=== PATIENT | female | born 1975 | race Hispanic/Latino ===

== ENCOUNTER 2018-11-14 17:14 | Inpatient (IN) | payer SELFPAY ==
[2018-11-14] MEDS ORDERED: NA CHLORIDE 0.9% 1,000 ML ONE ×2 (18:33→20:19)
[2018-11-14] MEDS ORDERED: ONDANSETRON 4 MG/2 ML VIAL ONE (18:33)
[2018-11-14] MEDS ORDERED: KETOROLAC 30 MG/ML INJ ONE (18:33)
[2018-11-14 18:47] LABS: Potassium 3.7 mmol/L (3.5-5.1)
[2018-11-14 18:55] LABS: Urine Blood TRACE (NEG); Urine Glucose NEGATIVE (NEG); Urine Protein NEGATIVE (NEG)
--- NOTE | 2018-11-14 19:30 | RAD REPORT ---
EXAM DESCRIPTION: CT - Stone Protocol - 11/14/2018 6:58 pm CLINICAL HISTORY: Abdominal pain. Left lower quadrant pain and nausea COMPARISON: None. TECHNIQUE: Computed axial tomography of the abdomen pelvis was obtained without oral or IV contrast. Lack of IV and oral contrast limits evaluation of solid organs, bowel, and vessels. Coronal reformat lb images were obtained and reviewed. All CT scans are performed using dose optimization technique as appropriate and may include automated exposure control or mA/KV adjustment according to patient size. FINDINGS: A 5 millimeter right renal calculus is present. Hydronephrosis is not noted. An ureteral c alculus is not noted. A bladder calculus is not present. The liver, spleen, pancreas and adrenals appear grossly normal The appendix appears normal Small umbilical hernia Diverticula stem from the colon. Mild to moderate stranding is present within the fat adjacent to pro ximal sigmoid colon. Small amount of ascites IMPRESSION: Mild to moderate sigmoid diverticulitis Nonobstructing right renal calculus
[2018-11-14] MEDS ORDERED: METRONIDAZOLE 500mg IVPB 500 MG/100 ML BAG IV ONE (20:19)
[2018-11-14] MEDS ORDERED: CIPROFLOXACIN 400mg IV 400 MG/200 ML BAG IV ONE (20:19)
--- NOTE | 2018-11-14 20:47 | EDPHYS ---
Physician Documentation [facility] Name: Tona Stafford Age: 43 yrs Sex: Female : 1975 Arrival Date: 11/14/2018 Time: 17:18 Bed 28 Private MD: ED Physician Peter Williamson HPI: 11/14 21:01 This 43 yrs old Female presents to ER via Ambulatory with complaints of Flank kb Pain. 21:01 The patient presents with abdominal pain in the left lower quadrant. Onset: The kb symptoms/episode began/occurred 3 day(s) ago. The symptoms do not radiate. Associated signs and symptoms: Pertinent positives: nausea and vomiting, constipation. The symptoms are described as constant. Modifying factors: The symptoms are alleviated by nothing, the symptoms are aggravated by nothing. Severity of pain: At its worst the pain was moderate in the emergency department the pain is unchanged. The patient has not experienced similar symptoms in the past. The patient has not recently seen a physician. 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 - Social history:: Smoking status: Patient uses tobacco products, smokes one pack cigarettes per day. - Ebola Screening: : No symptoms or risks identified at this time. ROS: 21:00 Constitutional: Negative for fever, chills, and weight loss, Cardiovascular: Negative kb for chest pain, palpitations, and edema, Respiratory: Negative for shortness of breath, cough, wheezing, and pleuritic chest pain, Back: Negative for injury and pain, : Negative for injury, bleeding, discharge, and swelling, MS/Extremity: Negative for injury and deformity, Skin: Negative for injury, rash, and discoloration, Neuro: Negative for headache, weakness, numbness, tingling, and seizure. 21:00 Abdomen/GI: Positive for abdominal pain, nausea and vomiting, constipation, Negative for diarrhea. Exam: 21:01 Constitutional: This is a well developed, well nourished patient who is awake, alert, kb and in no acute distress. Head/Face: Normocephalic, atraumatic. ENT: Nares patent. No nasal discharge, no septal abnormalities noted. Tympanic membranes are normal and external auditory canals are clear. Oropharynx with no redness, swelling, or masses, exudates, or evidence of obstruction, uvula midline. Mucous membranes moist. Neck: Trachea midline, no thyromegaly or masses palpated, and no cervical lymphadenopathy. Supple, full range of motion without nuchal rigidity, or vertebral point tenderness. No Meningismus. Chest/axilla: Normal chest wall appearance and motion. Nontender with no deformity. No lesions are appreciated. Cardiovascular: Regular rate and rhythm with a normal S1 and S2. No gallops, murmurs, or rubs. Normal PMI, no JVD. No pulse deficits. Respiratory: Lungs have equal breath sounds bilaterally, clear to auscultation and percussion. No rales, rhonchi or wheezes noted. No increased work of breathing, no retractions or nasal flaring. Skin: Warm, dry with normal turgor. Normal color with no rashes, no lesions, and no evidence of cellulitis. MS/ Extremity: Pulses equal, no cyanosis. Neurovascular intact. Full, normal range of motion. Neuro: Awake and alert, GCS 15, oriented to person, place, time, and situation. Cranial nerves II-XII grossly intact. Motor strength 5/5 in all extremities. Sensory grossly intact. Cerebellar exam normal. Normal gait. 21:01 Abdomen/GI: Inspection: abdomen appears normal, Bowel sounds: normal, in all quadrants, Palpation: soft, in all quadrants, nontender, in the right upper quadrant and right lower quadrant, moderate abdominal tenderness, in the left upper quadrant and left lower quadrant. Vital Signs: 17:33 BP 130 / 82; Pulse 92; Resp 16; Temp 99.2; Pulse Ox 100% on R/A; Pain 6/10; hb 18:00 BP 115 / 74; Pulse 87; Resp 18 S; Pulse Ox 100% on R/A; rv 18:30 BP 112 / 73; Pulse 85; Resp 18 S; Pulse Ox 98% on R/A; rv 19:00 BP 93 / 66; Pulse 84; Resp 17 S; Pulse Ox 100% on R/A; rv MDM: 17:53 Patient medically screened. kb 20:45 Data reviewed: vital signs, nurses notes. Data interpreted: Pulse oximetry: on room air kb is 100 %. Interpretation: normal. Counseling: I had a detailed discussion with the patient and/or guardian regarding: the historical points, exam findings, and any diagnostic results supporting the discharge/admit diagnosis, lab results, radiology results, the need for further work-up and treatment in the hospital. Physician consultation: Cr Monge MD was contacted at 20:45, regarding admission, to the medical/surgical unit. patient's condition, and will see patient in ED, shortly. 11/14 18:08 Order name: Urine Dipstick--Ancillary (enter results) eb 11/14 18:08 Order name: Urine --Ancillary (enter results) eb 11/14 18:16 Order name: Basic Metabolic Panel; Complete Time: 18:52 kb 11/14 18:16 Order name: CBC with Diff; Complete Time: 20:12 kb 11/14 21:04 Order name: CBC with Automated Diff EDIN 11/14 21:04 Order name: CBC with Automated Diff EDIN 11/14 18:16 Order name: CT Stone Protocol; Complete Time: 19:35 kb 11/14 21:04 Order name: Comprehensive Metabolic Panel EDIN 11/14 21:05 Order name: Comprehensive Metabolic Panel EDIN 11/14 18:16 Order name: IV Saline Lock; Complete Time: 18:29 kb 11/14 18:16 Order name: Labs collected and sent; Complete Time: 18:29 kb 11/14 21:04 Order name: CONS Pharmacy Consult EDIN 11/14 21:04 Order name: NPO EDIN Administered Medications: 18:20 Drug: NS 0.9% 1000 ml Route: IV; Rate: 1000 ml; Site: left antecubital; rv 18:20 Drug: TORadol 30 mg Route: IVP; Site: left antecubital; rv 18:20 Drug: Zofran 4 mg Route: IVP; Site: left antecubital; rv 20:14 Drug: Flagyl 500 mg Volume: 100 ml; Route: IVPB; Rate: 200 ml/hr; Infused Over: 30 rv mins; Site: left antecubital; 21:11 Follow up: IV Status: Completed infusion rv Disposition: 11/14/18 20:46 Hospitalization ordered by Cr Monge for Inpatient Admission. Preliminary diagnosis is Diverticulitis of intestine, part unspecified, without perforation or abscess without bleeding. - Bed requested for Telemetry/MedSurg (Inpatient). - Status is Inpatient Admission. rv - Condition is Stable. - Problem is new. - Symptoms are unchanged. UTI on Admission? No Addendum: 11/21/2018 09:32 Co-signature as Attending Physician, Cr Monge MD I agree with the assessment and k dr plan of care. Signatures: Dispatcher [employer] EDMS Herlinda Costa, VERTICAL CONTOUR BAND SAW OPERATOR-C VERTICAL CONTOUR BAND SAW OPERATOR-Ckb Milana Giraldo RN RN Peter Williamson MD MD [facility] Julia Leung, RN RN Kenney Ray, RN RN rv Corrections: (The following items were deleted from the chart) 11/14 20:54 20:46 Hospitalization Ordered by Cr Monge MD for Inpatient Admission. Preliminary diagnosis is Diverticulitis of intestine, part unspecified, without perforation or abscess without bleeding. Bed requested for Telemetry/MedSurg (Inpatient). Status is Inpatient Admission. Condition is Stable. Problem is new. Symptoms are unchanged. UTI on Admission? No. kb 21:38 20:54 11/14/2018 20:46 Hospitalization Ordered by Cr Monge MD for Inpatient rv Admission. Preliminary diagnosis is Diverticulitis of intestine, part unspecified, without perforation or abscess without bleeding. Bed requested for Telemetry/MedSurg (Inpatient). Status is Inpatient Admission. Condition is Stable. Problem is new. Symptoms are unchanged. UTI on Admission? No. mw
--- NOTE | 2018-11-14 20:47 | ER ---
Nurse's Notes [facility] Name: Tona Stafford Age: 43 yrs Sex: Female : 1975 Arrival Date: 11/14/2018 Time: 17:18 Bed 28 Private MD: Diagnosis: Diverticulitis of intestine, part unspecified, without perforation or abscess without bleeding Presentation: 11/14 17:33 Presenting complaint: LLQ pain and nausea x 3 days. Transition of care: patient was not hb received from another setting of care. Onset of symptoms was November 12, 2018. Risk Assessment: Do you want to hurt yourself or someone else? Patient reports no desire to harm self or others. Care prior to arrival: None. 17:33 Method Of Arrival: Ambulatory hb 17:33 Acuity: TRUE 3 hb 18:30 Initial Sepsis Screen: Does the patient meet any 2 criteria? No. Patient's initial rv sepsis screen is negative. Does the patient have a suspected source of infection? No. Patient's initial sepsis screen is negative. 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 - Social history:: Smoking status: Patient uses tobacco products, smokes one pack cigarettes per day. - Ebola Screening: : No symptoms or risks identified at this time. Screenin:30 Abuse screen: Denies threats or abuse. Denies injuries from another. Nutritional rv screening: No deficits noted. Tuberculosis screening: No symptoms or risk factors identified. Fall Risk None identified. Assessment: 18:29 General: Appears in no apparent distress. uncomfortable, Behavior is calm, cooperative. rv Pain: Complains of pain in back. Neuro: Level of Consciousness is awake, alert, obeys commands, Oriented to person, place, time, situation. Cardiovascular: Capillary refill < 3 seconds. Respiratory: Airway is patent. GI: No signs and/or symptoms were reported involving the gastrointestinal system. : No signs and/or symptoms were reported regarding the genitourinary system. EENT: No signs and/or symptoms were reported regarding the EENT system. Derm: Skin is intact. Musculoskeletal: No signs and/or symptoms reported regarding the musculoskeletal system. 20:42 Reassessment: Patient appears in no apparent distress at this time. Patient and/or rv family updated on plan of care and expected duration. Pain level reassessed. Patient is alert, oriented x 3, equal unlabored respirations, skin warm/dry/pink. Vital Signs: 17:33 BP 130 / 82; Pulse 92; Resp 16; Temp 99.2; Pulse Ox 100% on R/A; Pain 6/10; hb 18:00 BP 115 / 74; Pulse 87; Resp 18 S; Pulse Ox 100% on R/A; rv 18:30 BP 112 / 73; Pulse 85; Resp 18 S; Pulse Ox 98% on R/A; rv 19:00 BP 93 / 66; Pulse 84; Resp 17 S; Pulse Ox 100% on R/A; rv ED Course: 17:18 Patient arrived in ED. rg4 17:34 Triage completed. hb 17:35 Arm band placed on right wrist. hb 17:52 Herlinda Costa FNP-C is PHCP. kb 17:52 Peter Williamson MD is Attending Physician. kb 18:20 Inserted saline lock: 20 gauge in left antecubital area, using aseptic technique. Blood rv collected. 18:20 Initial lab(s) drawn, by me, sent to lab. rv 18:29 Urine --Ancillary (enter results) Sent. rv 18:29 Urine Dipstick--Ancillary (enter results) Sent. rv 18:30 Patient has correct armband on for positive identification. Bed in low position. Call rv light in reach. Side rails up X 1. Adult w/ patient. Pulse ox on. NIBP on. 18:57 CT completed. Patient tolerated procedure well. Patient moved to CT. Patient moved back nc from CT. 18:58 CT Stone Protocol In Process Unspecified. EDMS 20:46 Cr Monge MD is Hospitalizing Provider. kb 21:35 No provider procedures requiring assistance completed. Patient admitted, IV remains in rv place. intact. Administered Medications: 18:20 Drug: NS 0.9% 1000 ml Route: IV; Rate: 1000 ml; Site: left antecubital; rv 18:20 Drug: TORadol 30 mg Route: IVP; Site: left antecubital; rv 18:20 Drug: Zofran 4 mg Route: IVP; Site: left antecubital; rv 20:14 Drug: Flagyl 500 mg Volume: 100 ml; Route: IVPB; Rate: 200 ml/hr; Infused Over: 30 rv mins; Site: left antecubital; 21:11 Follow up: IV Status: Completed infusion rv Outcome: 20:46 Decision to Hospitalize by Provider. kb 21:36 Admitted to Med/surg accompanied by tech, via wheelchair, room 206, with chart, Report rv called to ELIF STALLINGS 21:36 Condition: good 21:36 Instructed on the need for admit. 21:38 Patient left the ED. rv Signatures: Dispatcher [employer] EDHerlinda Martinez, RONDA-C ASSEMBLER PRODUCTION LINE-Julia Roberson, RN RN Magalys Rojas Nathan nj Vicente, Ronaldo, RN RN rv
[2018-11-14] MEDS: NA CHLORIDE 0.9% 1,000 ML IV SCH (22:00)
[2018-11-14] MEDS ORDERED: Levofloxacin500mg IV 500 MG/100 ML BAG IV SCH (22:00)
[2018-11-14] MEDS: ONDANSETRON 4 MG/2 ML VIAL IV PRN (22:04)
[2018-11-14] MEDS: MORPHINE 4 MG/ML SYR IV PRN (22:04)
[2018-11-14 22:44] LABS: Urine Appearance CLEAR; Urine Bilirubin NEGATIVE (NEG); Urine Blood NEGATIVE (NEG); Urine Color YELLOW; Urine Glucose NEGATIVE (NEG); Urine Protein NEGATIVE (NEG); Urine Urobilinogen 0.2 mg/dL (0.2-1.0); Urine pH 5.5 (5.0-7.0)
[2018-11-15 00:18] LABS: Urine Microscopic Reflex ORDER UMIC
[2018-11-15] MEDS: METRONIDAZOLE 500mg IVPB 500 MG/100 ML BAG IV SCH ×3 (00:45→16:19)
[2018-11-15 01:44] LABS: Urine Bacteria <20 /HPF (<20); Urine Culture Reflex Order REFLEXED; Urine RBC NONE SEEN /HPF (NONE SEEN)
[2018-11-15] MEDS: NA CHLORIDE 0.9% 1,000 ML IV SCH (04:45)
--- NOTE | 2018-11-15 05:24 | P.HP ---
Certification for Inpatient Patient admitted to: Inpatient With expected LOS: >2 Midnights Practitioner: I am a practitioner with admitting privileges, knowledge of patient current condition, hospital course, and medical plan of care. Services: Services provided to patient in accordance with Admission requirements found in Title 42 Section 412.3 of the Code of Federal Regulations Patient History Date of Service: 11/14/18 Reason for admission: abdominal pain History of Present Illness: Patient is a 43-year-old female who comes into the hospital with lower quadrant abdominal discomfort. Patient also has some nausea with no vomiting. She states she has had bloody stools in the past. She follows up with her physician in [place] who is not recommended any further intervention. She decided to come to our hospital because her pain was getting more severe. She has had fever but no shakes or chills. She was admitted to the hospital and in the emergency room her workup revealed diverticulitis. She will need a colonoscopy in the next 6-12 weeks. She will get her labs rechecked in the morning. If she is feeling better we can start a clear liquid diet. We will be able to advance this as tolerated and she hopefully will be able to go home in the next 72 hours. Allergies No Known Allergies Allergy (Unverified 11/14/18 21:02) Home Medications: Insulin NPH Human [Novolin N (Humulin N)*] See Protocol SQ SEECOM 11/15/18 Losartan Potassium [Cozaar] 25 mg PO DAILY 11/15/18 Metformin HCl 1,000 mg PO BID 11/15/18 - Past Medical/Surgical History Has patient received pneumonia vaccine in the past: No Diabetic: Yes -: Hypertension -: Seizures-2016 -: Diabetes -: Depression -: Tubal ligation - Family History Father Medical History: Heart disease Mother Medical History: Heart disease, Diabetes, Other (see notes) Notes: mental illness - Social History Smoking Status: Current every day smoker Alcohol use: No CD- Drugs: No Caffeine use: Yes Place of Residence: Home Review of Systems 10-point ROS is otherwise unremarkable Physical Examination - Vital Signs Temperature: 98.4 F Blood Pressure: 97/58 Pulse: 78 Respirations: 16 Pulse Ox (%): 96 - Physical Exam General: Alert, In no apparent distress, Oriented x3 HEENT: Atraumatic, PERRLA, Mucous membr. moist/pink, EOMI, Sclerae nonicteric Neck: Supple, 2+ carotid pulse no bruit, No LAD, Without JVD or thyroid abnormality Respiratory: Clear to auscultation bilaterally, Normal air movement Cardiovascular: Regular rate/rhythm, Normal S1 S2, No murmurs Gastrointestinal: Normal bowel sounds, Soft and benign, Distended, Tenderness Musculoskeletal: No clubbing, No swelling, No tenderness Integumentary: No rashes Neurological: Normal gait, Normal speech, Normal strength at 5/5 x4 extr, Normal tone, Sensation intact, Cranial nerves 3-12 intact, Normal affect Lymphatics: No axilla or inguinal lymphadenopathy - Studies Laboratory Data (last 24 hrs) 11/14/18 18:20: WBC 11.1 H, Hgb INFORMATION TECHNOLOGY SPECIALIST, Hct INFORMATION TECHNOLOGY SPECIALIST, Plt Count INFORMATION TECHNOLOGY SPECIALIST 11/14/18 18:20: Sodium 139, Potassium 3.7, BUN 7, Creatinine 0.73, Glucose 111 H Assessment & Plan - Problems (Diagnosis) (1) Diverticulitis Current Visit: Yes Status: Acute (2) HTN (hypertension) Current Visit: Yes Status: Acute (3) DM2 (diabetes mellitus, type 2) Current Visit: Yes Status: Acute (4) Seizure Current Visit: Yes Status: Acute - Plan Plan: 1. IV fluids and IV antibiotics 2. Stool studies 3. GI consultation which can be obtained as an outpatient 4. Pain control 5. Outpatient colonoscopy 6. Repeat abdominal film if pain worsens to rule out perforation 7. strict blood pressure and blood sugar control 8. GI and DVT prophylaxis Discharge Plan: Home Plan to discharge in: 72 Hours - Advance Directives Does patient have a Living Will: No Does patient have a Durable POA for Healthcare: No - Code Status/Comfort Care Code Status Assessed: Yes Code Status: Full Code Critical Care: No Time Spent Managing PTS Care (In Minutes): 50
[2018-11-15] MEDS ORDERED: INFLUENZA VACCINE (for 3y+) 0.5 ML DOSE IMVAC ONE (06:00)
[2018-11-15 07:07] LABS: ALT/SGPT 16 U/L (12-78); AST/SGOT 10 U/L (15-37); Albumin 2.6 g/dL (3.4-5.0); Alkaline Phosphatase 64 U/L (45-117); BUN Blood Urea Nitrogen 6 mg/dL (7-18); Bicarbonate 23 mmol/L (21-32); Bilirubin Total 0.4 mg/dL (0.2-1.0); Glucose Level 105 mg/dL (74-106); Potassium 3.5 mmol/L (3.5-5.1); Protein, Total 6.5 g/dL (6.4-8.2); Sodium Level 140 mmol/L (136-145)
[2018-11-15] MEDS: MORPHINE 4 MG/ML SYR IV PRN ×2 (08:10→20:55)
[2018-11-15] MEDS ORDERED: Levofloxacin500mg IV 500 MG/100 ML BAG IV SCH (09:00)
--- NOTE | 2018-11-15 12:13 | P.PN ---
Subjective Date of Service: 11/15/18 Chief Complaint: abdominal pain Subjective: No C/O voiced, Improving Patient seen and examined at bedside. No family at bedside. Chart reviewed and case discussed with nursing staff. Reports improved pain Review of Systems 10-point ROS is otherwise unremarkable Physical Examination - Vital Signs Temperature: 98.4 F Blood Pressure: 97/58 Pulse: 78 Respirations: 16 Pulse Ox (%): 96 - Physical Exam General: Alert, In no apparent distress, Oriented x3 HEENT: Atraumatic, PERRLA, EOMI Neck: Supple, JVD not distended Respiratory: Clear to auscultation bilaterally, Normal air movement Cardiovascular: Regular rate/rhythm, Normal S1 S2 Gastrointestinal: Tenderness (left lower quadrant) Musculoskeletal: No tenderness Integumentary: No rashes Neurological: Normal speech, Normal tone, Normal affect - Studies Laboratory Data (last 24 hrs) 11/14/18 18:20: WBC 11.1 H, Hgb SILK SPOOLER, Hct SILK SPOOLER, Plt Count SILK SPOOLER 11/14/18 18:20: Sodium 139, Potassium 3.7, BUN 7, Creatinine 0.73, Glucose 111 H Assessment And Plan - Current Problems (Diagnosis) (1) Diverticulitis Onset Date: 11/15/18 Current Visit: Yes Status: Acute (2) HTN (hypertension) Onset Date: 11/15/18 Current Visit: Yes Status: Acute (3) DM2 (diabetes mellitus, type 2) Onset Date: 11/15/18 Current Visit: Yes Status: Acute - Plan This is a 43-year-old female with: Diverticulitis (Acute 11/15/18) K57.92 Keep NPO, Continue IV fluids Continue IV antibiotics with ciprofloxacin and Flagyl Pain management Will need outpatient GI followup as well as a colonoscopy outpatient in 6-12 weeks. HTN (hypertension) (Acute 11/15/18) I10 Blood pressure on the lower end at this time. Will hold home losartan at this time Will restart as needed DM2 (diabetes mellitus, type 2) (Acute 11/15/18) Continue Accu-Cheks and sliding scale insulin. Will continue to monitor and adjust as needed. DVT prophylaxis: None. Encouraged ambulation GI prophylaxis: None Diet: NPO Disposition: Pending symptomatic improved
[2018-11-15] MEDS: ACETAMINOPHEN 500 MG TAB PO PRN (15:02)
[2018-11-15] MEDS: CIPROFLOXACIN 400mg IV 400 MG/200 ML BAG IV SCH (20:54)
[2018-11-15] MEDS: ONDANSETRON 4 MG/2 ML VIAL IV PRN (22:11)
[2018-11-16] MEDS: METRONIDAZOLE 500mg IVPB 500 MG/100 ML BAG IV SCH ×3 (00:54→16:42)
[2018-11-16] MEDS: NA CHLORIDE 0.9% 1,000 ML IV SCH ×2 (00:58→16:42)
[2018-11-16] MEDS: MORPHINE 4 MG/ML SYR IV PRN ×4 (03:59→20:32)
[2018-11-16] MEDS: ONDANSETRON 4 MG/2 ML VIAL IV PRN ×3 (04:00→16:43)
[2018-11-16 06:17] LABS: BUN Blood Urea Nitrogen 4 mg/dL (7-18); Bicarbonate 25 mmol/L (21-32); Glucose Level 103 mg/dL (74-106); Potassium 3.6 mmol/L (3.5-5.1); Sodium Level 140 mmol/L (136-145)
[2018-11-16] MEDS: CIPROFLOXACIN 400mg IV 400 MG/200 ML BAG IV SCH ×2 (09:44→20:31)
--- NOTE | 2018-11-16 12:23 | P.PN ---
Subjective Date of Service: 11/16/18 Chief Complaint: abdominal pain Subjective: No C/O voiced Patient seen and examined at bedside. No family at bedside. Chart reviewed and case discussed with nursing staff. Patient was tolerating clear liquid diet yesterday, so advanced to full then GI soft. Patient reports increased pain and nausea with GI soft. Also reports bright red blood on tissue when wiping. Unsure when last menses was , patient does not think she is on her menstrual cycle but hx of hemmorhoids and has had something like this prior. Review of Systems 10-point ROS is otherwise unremarkable Physical Examination - Vital Signs Temperature: 98.8 F Blood Pressure: 124/68 Pulse: 89 Respirations: 16 Pulse Ox (%): 97 - Physical Exam General: Alert, In no apparent distress, Oriented x3 HEENT: Atraumatic, PERRLA, EOMI Neck: Supple, JVD not distended Respiratory: Clear to auscultation bilaterally, Normal air movement Cardiovascular: Regular rate/rhythm, Normal S1 S2 Gastrointestinal: Normal bowel sounds (with deep palpation), Tenderness Musculoskeletal: No tenderness Integumentary: No rashes Neurological: Normal speech, Normal tone, Normal affect Lymphatics: No axilla or inguinal lymphadenopathy Assessment And Plan - Current Problems (Diagnosis) (1) Diverticulitis Onset Date: 11/15/18 Current Visit: Yes Status: Acute (2) HTN (hypertension) Onset Date: 11/15/18 Current Visit: Yes Status: Acute (3) DM2 (diabetes mellitus, type 2) Onset Date: 11/15/18 Current Visit: Yes Status: Acute (4) BRBPR (bright red blood per rectum) Current Visit: Yes Status: Acute - Plan This is a 43-year-old female with: Diverticulitis (Acute 11/15/18) K57.92 Patient was tolerating CLD, but unable to tolerate GI soft. Trial of CLD again. Continue IV antibiotics with ciprofloxacin and Flagyl Pain management Will need outpatient GI followup as well as a colonoscopy outpatient in 6-12 weeks. HTN (hypertension) (Acute 11/15/18) I10 Blood pressure on the lower end at this time. Will hold home losartan at this time Will restart as needed DM2 (diabetes mellitus, type 2) (Acute 11/15/18) Continue Accu-Cheks and sliding scale insulin. Will continue to monitor and adjust as needed. Bright red blood per rectum likely secondary to hemmorhoids vs menses? Unable to check Hgb since machine was broken in the hospital. reordered CBC, pending. HDS, no other evidence of bleeding. Will continue to monitor DVT prophylaxis: None. Encouraged ambulation GI prophylaxis: None Diet: NPO Disposition: Pending symptomatic improved
[2018-11-16 13:12] LABS: Absolute Lymphocytes (CBC) 1.5 K/uL (0.7-4.9); Absolute Monocytes 0.5 K/uL (0.1-1.3); Absolute Neutrophil 4.9 K/uL (1.8-8.0); Basophils % 0.5 % (0-1.3); Eosinophils % 1.1 % (0-4.4); Hematocrit 34.8 % (36.0-45.0); Lymphocytes % 21.2 % (15.3-44.8); MPV 9.2 fL (7.6-11.3); Monocytes % 7.1 % (3.3-12.3); RBC Red Blood Cell Count 4.19 M/uL (3.86-4.86)
[2018-11-16] MEDS ORDERED: ONDANSETRON 4 MG/2 ML VIAL IV ONE (18:49)
--- NOTE | 2018-11-16 20:04 | RAD REPORT ---
EXAM DESCRIPTION: RAD - Abdomen 1 View (KUB) - 11/16/2018 7:30 pm CLINICAL HISTORY: Abdomen pain. FINDINGS: The bowel gas pattern is unremarkable. Small right renal calculus is present
[2018-11-17] MEDS: METRONIDAZOLE 500mg IVPB 500 MG/100 ML BAG IV SCH ×3 (01:53→17:26)
[2018-11-17] MEDS: MORPHINE 4 MG/ML SYR IV PRN ×4 (02:41→21:19)
[2018-11-17] MEDS: NA CHLORIDE 0.9% 1,000 ML IV SCH ×2 (04:01→16:40)
[2018-11-17 05:42] LABS: Absolute Lymphocytes (CBC) 1.6 K/uL (0.7-4.9); Absolute Monocytes 0.7 K/uL (0.1-1.3); Absolute Neutrophil 6.9 K/uL (1.8-8.0); Basophils % 0.9 % (0-1.3); Eosinophils % 0.9 % (0-4.4); Hematocrit 35.8 % (36.0-45.0); Lymphocytes % 17.1 % (15.3-44.8); MPV 9.1 fL (7.6-11.3); Monocytes % 7.7 % (3.3-12.3); RBC Red Blood Cell Count 4.33 M/uL (3.86-4.86)
[2018-11-17] MEDS: ONDANSETRON 4 MG/2 ML VIAL IV PRN ×3 (09:54→21:19)
[2018-11-17] MEDS: CIPROFLOXACIN 400mg IV 400 MG/200 ML BAG IV SCH ×2 (09:54→20:13)
--- NOTE | 2018-11-17 11:13 | P.PN ---
Subjective Date of Service: 11/17/18 Chief Complaint: abdominal pain Subjective: No C/O voiced Patient seen and examined at bedside. No family at bedside. Chart reviewed and case discussed with nursing staff. Patient tolerating clear liquid diet. Had 1 bowel movement this morning, with bright red blood Complaints of left lower quadrant soreness. Denies any flank pain, lower back pain, fevers or chills, dysuria. Review of Systems 10-point ROS is otherwise unremarkable Physical Examination - Vital Signs Temperature: 97.3 F Blood Pressure: 110/73 Pulse: 86 Respirations: 16 Pulse Ox (%): 98 - Physical Exam General: Alert, In no apparent distress, Oriented x3 HEENT: Atraumatic, PERRLA, EOMI Neck: Supple, JVD not distended Respiratory: Clear to auscultation bilaterally, Normal air movement Cardiovascular: Regular rate/rhythm, Normal S1 S2 Gastrointestinal: Normal bowel sounds, Tenderness (Left lower quadrant) Musculoskeletal: No tenderness Integumentary: No rashes Neurological: Normal speech, Normal tone, Normal affect Lymphatics: No axilla or inguinal lymphadenopathy Assessment And Plan - Current Problems (Diagnosis) (1) Diverticulitis Onset Date: 11/15/18 Current Visit: Yes Status: Acute (2) HTN (hypertension) Onset Date: 11/15/18 Current Visit: Yes Status: Acute (3) DM2 (diabetes mellitus, type 2) Onset Date: 11/15/18 Current Visit: Yes Status: Acute (4) BRBPR (bright red blood per rectum) Current Visit: Yes Status: Acute (5) Renal calculus, right Current Visit: Yes Status: Acute - Plan This is a 43-year-old female with: Diverticulitis (Acute 11/15/18) K57.92 Continue clear liquid diet as tolerated Continue IV antibiotics with ciprofloxacin and Flagyl Pain management Will need GI followup for a colonoscopy as an outpatient in 4-6 weeks. HTN (hypertension) (Acute 11/15/18) I10 Stable, will continue to monitor DM2 (diabetes mellitus, type 2) (Acute 11/15/18) Continue Accu-Cheks and sliding scale insulin. Will continue to monitor and adjust as needed. Bright red blood per rectum likely secondary to hemmorhoids vs menses? Hemoglobin stable. HDS, no other evidence of bleeding. Will continue to monitor 5 mm renal stone, right side Patient without dysuria, flank pain, fevers Normal white count, hemodynamically stable No evidence of hydronephrosis, obstruction on CT. No further evaluation at this time for this done. Continue pain control DVT prophylaxis: Lovenox; Encouraged ambulation GI prophylaxis: None Diet: Clear liquid diet Disposition: Pending symptomatic improved Time Spent Managing PTS Care (In Minutes): 35
[2018-11-17] MEDS: ENOXAPARIN 40 MG/0.4 ML SQ SCH (12:44)
[2018-11-17] MEDS: ACETAMINOPHEN 500 MG TAB PO PRN ×2 (13:00→20:12)
[2018-11-17 17:12] LABS: Urine Appearance CLEAR; Urine Bilirubin NEGATIVE (NEG); Urine Blood 3+ (NEG); Urine Color YELLOW; Urine Glucose NEGATIVE (NEG); Urine Protein NEGATIVE (NEG); Urine Urobilinogen 0.2 mg/dL (0.2-1.0); Urine pH 6.5 (5.0-7.0)
[2018-11-17 17:28] LABS: Urine Microscopic Reflex ORDER UMIC
[2018-11-17 17:36] LABS: Urine Bacteria NONE SEEN /HPF (<20); Urine RBC >50 /HPF (NONE SEEN)
[2018-11-17 17:37] LABS: Urine Culture Reflex Order NOT NEEDED
[2018-11-18] MEDS: METRONIDAZOLE 500mg IVPB 500 MG/100 ML BAG IV SCH ×3 (00:55→17:55)
[2018-11-18] MEDS: MORPHINE 4 MG/ML SYR IV PRN ×5 (01:42→23:05)
[2018-11-18] MEDS: NA CHLORIDE 0.9% 1,000 ML IV SCH ×5 (01:44→23:06)
[2018-11-18] MEDS: ONDANSETRON 4 MG/2 ML VIAL IV PRN ×2 (05:48→12:33)
--- NOTE | 2018-11-18 07:21 | P.PN ---
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 Pain was from the right flank to the right groin area. Patient also had left lower quadrant pain. Patient also appeared to be diaphoretic with shakes and chills. Since patient had the nephrolithiasis and pain is worsening will get urology consultation. Review of Systems 10-point ROS is otherwise unremarkable Physical Examination - Vital Signs Temperature: 98.3 F Blood Pressure: 117/60 Pulse: 92 Respirations: 18 Pulse Ox (%): 96 - Physical Exam General: Alert, In no apparent distress, Oriented x3 Respiratory: Clear to auscultation bilaterally, Normal air movement Cardiovascular: Regular rate/rhythm, Normal S1 S2 Gastrointestinal: Normal bowel sounds, No tenderness Musculoskeletal: No tenderness Integumentary: No rashes Neurological: Normal speech, Normal tone, Normal affect Lymphatics: No axilla or inguinal lymphadenopathy - Studies Medications List Reviewed: Yes Assessment & Plan - Problems (Diagnosis) (1) Diverticulitis Onset Date: 11/15/18 Current Visit: Yes Status: Acute (2) HTN (hypertension) Onset Date: 11/15/18 Current Visit: Yes Status: Acute (3) DM2 (diabetes mellitus, type 2) Onset Date: 11/15/18 Current Visit: Yes Status: Acute (4) Seizure Onset Date: 11/15/18 Current Visit: Yes Status: Acute (5) Nephrolithiasis Current Visit: Yes Status: Acute - Plan Plan: 1. Increase IV fluids and continue with IV antibiotics 2. Urology consultation 3. Strain urine 4. Outpatient colonoscopy 5. Repeat CT scan if symptoms are worsening 6. Monitor labs closely 7. GI and DVT prophylaxis - Advance Directives Does patient have a Living Will: No Does patient have a Durable POA for Healthcare: No - Code Status/Comfort Care Code Status: Full Code Critical Care: No Time Spent Managing PTS Care (In Minutes): 30
[2018-11-18 08:30] LABS: Absolute Lymphocytes (CBC) 1.7 K/uL (0.7-4.9); Absolute Monocytes 0.6 K/uL (0.1-1.3); Absolute Neutrophil 5.7 K/uL (1.8-8.0); Basophils % 0.5 % (0-1.3); Eosinophils % 1.5 % (0-4.4); Hematocrit 36.1 % (36.0-45.0); Lymphocytes % 20.6 % (15.3-44.8); MPV 8.5 fL (7.6-11.3); Monocytes % 7.9 % (3.3-12.3); RBC Red Blood Cell Count 4.34 M/uL (3.86-4.86)
[2018-11-18 08:50] LABS: ALT/SGPT 15 U/L (12-78); AST/SGOT 12 U/L (15-37); Albumin 2.8 g/dL (3.4-5.0); Alkaline Phosphatase 62 U/L (45-117); BUN Blood Urea Nitrogen 3 mg/dL (7-18); Bicarbonate 27 mmol/L (21-32); Bilirubin Total 0.3 mg/dL (0.2-1.0); Glucose Level 131 mg/dL (74-106); Potassium 3.3 mmol/L (3.5-5.1); Protein, Total 6.8 g/dL (6.4-8.2); Sodium Level 139 mmol/L (136-145)
[2018-11-18] MEDS: CIPROFLOXACIN 400mg IV 400 MG/200 ML BAG IV SCH ×2 (10:28→21:19)
[2018-11-18] MEDS: TRAMADOL HCL 50 MG TAB PO PRN (10:28)
[2018-11-18] MEDS: ENOXAPARIN 40 MG/0.4 ML SQ SCH (10:28)
--- NOTE | 2018-11-18 11:13 | RAD REPORT ---
EXAM DESCRIPTION: US - Transvaginal Study Probe - 11/18/2018 10:20 am CLINICAL HISTORY: LLQ pain Pelvic pain. COMPARISON: No comparisons FINDINGS: The uterus is normal in size, shape and echotexture. The uterus measures 8.5 x 4.5 x 4.1 c m. The endometrial stripe measures 4 mm, normal. Both ovaries are normal in size, shape and echotexture. The right ovary measures 2.7 x 2.4 x 1.8 cm. The left ovary measures 2.9 x 2.7 x 2.0 cm. No ovarian or parovarian lesions. No adnexal masses. Normal Doppler blood flow was demonstrated to both ovaries. No significant pelvic ascites. IMPRESSION: Unremarkable study.
--- NOTE | 2018-11-18 11:57 | RAD REPORT ---
EXAM DESCRIPTION: US - Abdomen Exam Complete - 11/18/2018 10:09 am CLINICAL HISTORY: Abdominal pain COMPARISON: November 14 2018 cat scan FINDINGS: The liver has a normal echotexture. A gallstone is not seen. The gallbladder wall is not thickened. The biliary tree is normal caliber. The pancreas was not well visualized secondary overlying bowel gas but appears grossly normal. The right kidney measures 11 centimeters with a normal echotexture. The left kidney measures 10 centimeters with a normal echotexture. The spleen measures 10 centimeters. The abdominal aorta and inferior vena cava appear unremarkable IMPRESSION: Unremarkable exam
--- NOTE | 2018-11-18 12:59 | P.PN ---
Subjective Date of Service: 11/18/18 Chief Complaint: abdominal pain Patient seen and examined at bedside. No family at bedside. Chart reviewed and case discussed with nursing staff. Complains of increased pain in left lower quadrant, in groin area. Today, she is also complaining of pain in right middle quadrant, radiating to the back/ lower back. Also states that there is blood in her urine. Patient states that her LMP was beginning of September. She is regular and is expecting her menses to be end of October. States that she has a hx of fibroids and has heavy menses but does not have any cramping associated with it. She does not think blood in the urine is due to her menses. Afebrile overnight. Vital signs stable. Review of Systems 10-point ROS is otherwise unremarkable Physical Examination - Vital Signs Temperature: 99 F Blood Pressure: 112/67 Pulse: 84 Respirations: 18 Pulse Ox (%): 97 - Physical Exam General: Alert, Oriented x3, Moderate distress HEENT: Atraumatic, PERRLA, EOMI Neck: Supple, JVD not distended Respiratory: Clear to auscultation bilaterally, Normal air movement Cardiovascular: Regular rate/rhythm, Normal S1 S2 Gastrointestinal: Normal bowel sounds, No tenderness Musculoskeletal: No tenderness (Negative CVA tenderness ) Integumentary: No rashes Neurological: Normal speech, Normal tone, Normal affect - Studies Medications List Reviewed: Yes Assessment And Plan - Current Problems (Diagnosis) (1) Diverticulitis Onset Date: 11/15/18 Current Visit: Yes Status: Acute (2) HTN (hypertension) Onset Date: 11/15/18 Current Visit: Yes Status: Acute (3) DM2 (diabetes mellitus, type 2) Onset Date: 11/15/18 Current Visit: Yes Status: Acute (4) BRBPR (bright red blood per rectum) Current Visit: Yes Status: Acute (5) Renal calculus, right Current Visit: Yes Status: Acute (6) Hematuria Current Visit: Yes Status: Acute - Plan This is a 43-year-old female with: Diverticulitis (Acute 11/15/18) K57.92 Continue clear liquid diet as tolerated Continue IV antibiotics with ciprofloxacin and Flagyl, day # 4 Pain management Will need GI followup for a colonoscopy as an outpatient in 4-6 weeks. HTN (hypertension) (Acute 01/18/19) I10 Stable, will continue to monitor DM2 (diabetes mellitus, type 2) (Acute 11/15/18) Continue Accu-Cheks and sliding scale insulin. Will continue to monitor and adjust as needed. Bright red blood per rectum: per patient, this has resolved. likely secondary to hemmorhoids vs menses? Hemoglobin remains stable. HDS, no other evidence of bleeding. Will continue to monitor 5 mm renal stone, right side Hematuria Patient now complaining of dysuria, flank pain Normal white count, hemodynamically stable, urine w/o evidence of infection No evidence of hydronephrosis, obstruction on CT. Urology consulted. Continue pain control History of Fibroids Pelvic ultrasound with no abnormalities. History of seizures No active episodes for the past 2+ years. Patient unsure of medication. Will attempt to contact pharmacy No episodes during hospitalization. DVT prophylaxis: Lovenox; Encouraged ambulation GI prophylaxis: None Diet: Clear liquid diet As per patient - she sees 3 or 4 different clinics and goes to 3-4 different pharmacies for her medications. She is unable to provide full details on all the clinics and pharmacies. She apparently has a history of seizures but is not sure what medications she takes. We will attempt to call pharmacy at [facility] to see if records could be faxed over. Disposition: Pending symptomatic improvement. Discharge Plan: Home Plan to discharge in: Unknown Time Spent Managing PTS Care (In Minutes): 45
--- NOTE | 2018-11-18 13:35 | CON ---
History Of Present Illness: A 43-year-old female who came to the hospital for diverticulitis. She h ad a CT scan that revealed a 5-mm stone in the right lower pole. There was no hydronephrosis. There was no ureteral calculus nor bladder calculus present. She did have mild to moderate sigmoid divert iculitis and she has been treated for this now. She will be scheduled for colonoscopy in the next 6 to 12 weeks. Allergies: NO KNOWN DRUG ALLERGIES. Home Medications: Insulin, losartan, and metformin. Past Medical History: Hypertension, seizures in 2017, diabetes, depression, and tubal ligation. Family History: Father had heart disease. Mother had heart disease and diabetes. Social History: Current everyday smoker. No alcohol use. No drug use. Does use caffeine. She res ides at home. Review of Systems: Ten-point review of systems unremarkable. Physical Examination: Vital Signs: Show temperature 98.3, pulse 92, respirations 18, BP 117/60, and saturations 96%. General Appearance: She is alert and oriented, no acute distress. HEENT: Atraumatic and normocephalic. Neck: Supple. Respiratory: Clear to auscultation. Cardiovascular: S1 and S2. Musculoskeletal: No clubbing, no swelling, no tenderness. Skin: No rashes. Neurological: Normal gait. Good sensation. Lymphatics: No swelling. Laboratory Studies: White count normal at 8.2, H and H of 11.6 and 36.1, platelet count 280. Chemis try shows sodium 139, potassium 3.3, chloride 108, carbon dioxide 27, BUN 3, creatinine 0.95, GFR gre ater than 90, glucose 131, and calcium 7.6. LFTs normal. Urine shows yellow, clear, pH 6.5, specifi c gravity 1.010, blood 3+, urobilinogen 0.2, leukocyte esterase trace, rbc greater than 50, wbc less than 5, squamous epithelial cells [address] scan as mentioned above. KUB also shows a stone on th e right side just below the twelfth rib. Assessment: A 5-mm stone in the right lower pole. The patient with history of diverticular colitis, should be treated for that. She can undergo ESWL electively as an outpatient. She can follow [facility] in the office on discharge and we will plan for ESWL on the right. PB/MODL Voice ID: [id number] Report ID: [id number]
[2018-11-19] MEDS: METRONIDAZOLE 500mg IVPB 500 MG/100 ML BAG IV SCH ×3 (01:39→16:19)
[2018-11-19] MEDS: TRAMADOL HCL 50 MG TAB PO PRN ×3 (01:41→15:45)
[2018-11-19] MEDS: MORPHINE 4 MG/ML SYR IV PRN ×2 (05:53→10:41)
[2018-11-19] MEDS: ONDANSETRON 4 MG/2 ML VIAL IV PRN ×3 (05:54→15:47)
[2018-11-19] MEDS: NA CHLORIDE 0.9% 1,000 ML IV SCH ×2 (08:40→15:20)
[2018-11-19] MEDS: CIPROFLOXACIN 400mg IV 400 MG/200 ML BAG IV SCH (09:15)
[2018-11-19] MEDS: ENOXAPARIN 40 MG/0.4 ML SQ SCH (09:16)
--- NOTE | 2018-11-20 01:00 | DS ---
Date of Discharge: 11/19/2018 Scanning Clerk: Dr. Johnson with Urology. Admitting Diagnoses: 1.Acute diverticulitis, sigmoid. 2.Essential hypertension. 3.Diabetes mellitus type 2. 4.History of seizure disorder. Discharge Diagnoses: 1.Acute diverticulitis, sigmoid, improving. 2.Essential hypertension. 3.Diabetes mellitus type 2, non-insulin requiring, with hyperglycemia. 4.Gastrointestinal bleed, bright red blood per rectum. 5.Renal calculus, right, nonobstructing. 6.Hematuria. 7.Obesity, body mass index of 37. 8.History of seizure disorder. 9.Major depressive disorder. Hospital Course: The patient is a 43-year-old female who comes in with lower quadrant abdominal disc omfort. CT scan was done, which revealed sigmoid diverticulitis. The patient was started on IV anti biotics and clear liquids. She had multiple repeat imaging including KUB, abdominal ultrasound, and transvaginal ultrasound, which have been negative. She did have an incidental finding of 5-mm stone on the right. The patient was seen by Dr. Johnson with Urology, who recommended outpatient ESWL srinath rivero. The patient otherwise did well over the course of the hospital stay. Her white blood cell cou nt normalized. Pain improved. She was able to tolerate a diet. She did report some bright red bloo d per rectum. Hemoccult was positive. She also reported some hematuria, likely related to the kidne y stone. Did have some mild electrolyte abnormalities, which were corrected. The patient overall di d well. She was unable to provide a list of accurate home medications and would not tell us the name of the p harmacy she uses. Attempt was made to obtain medications from her clinic, however, unsuccessful. Machelle kj was unable to provide us with a list of medications or bring in medications. The patient's symp toms improved. She was able to tolerate a diet. Her pain was resolving. She was then cleared for d ischarge from specialty sales consultant's standpoint and was discharged home in a stable condition. Activity: As tolerated. Medications: As per medication reconciliation list. Followup: Follow up with PCP in 2 to 3 days. Follow up with urologist, Dr. Johnson, in 2 weeks. Foll ow up with primary GI in [place] in 2 weeks. Return to ER for worsening condition. Physical Examination: General: Awake, alert, oriented x3. No acute distress. Obese female. CV: S1, S2. No murmurs. Respiratory: Moving air well bilaterally. Gastrointestinal: Abdomen is soft. Minimal tenderness to palpation on the left lower quadrant. No rebound or guarding. No signs of peritonitis. Bowel sounds are positive. No mass. Small umbilical hernia, reducible. Extremities: No clubbing, cyanosis, or edema. Neurologic: Nonfocal. Total time spent discharging the patient was 37 minutes. /HOLLY Voice ID: [id number] Report ID: [id number]
== END 2018-11-19 18:05 | disposition home or self-care (01) | DRG 392 ==
LOC: ER 17:14 → ERHOLD 21:08 → 2ND 21:35
PROVIDERS: ADMIT Family Medicine; ATTEND Family Medicine
DX: K57.32 Diverticulitis of large intestine without perforation or abscess without bleeding (principal); K92.2 Gastrointestinal hemorrhage, unspecified; I10 Essential (primary) hypertension; E11.65 Type 2 diabetes mellitus with hyperglycemia; Z79.84 Long term (current) use of oral hypoglycemic drugs; N20.0 Calculus of kidney; R31.9 Hematuria, unspecified; E66.9 Obesity, unspecified; Z68.37 Body mass index [BMI] 37.0-37.9, adult; G40.909 Epilepsy, unspecified, not intractable, without status epilepticus; F32.9 Major depressive disorder, single episode, unspecified; Z79.4 Long term (current) use of insulin; F17.210 Nicotine dependence, cigarettes, uncomplicated
CPT/HCPCS: 36415; 74018; 74176; 76377; 76700; 76830; 80048; 80053; 81003; 81015; 81025; 82274; 82962; 85025; 87086; 87088; G0008; J0744; J1650; J2405; J7030; Q2035